=== PATIENT | female | born 1990 | race Caucasian/White ===

== ENCOUNTER 2019-08-08 08:03 | Outpatient (CLI) | payer OTHER ==
[~2019-08-08 08:03] MED LIST: IBUP-1222 PO; LISI40TA PO
[2019-08-08] MEDS ORDERED: SERT50TA28 PO (08:49)
[2019-08-08] MEDS ORDERED: OMEP20TA62 PO (08:49)
[2019-08-08] MEDS ORDERED: ELAG150T PO (08:49)
[2019-08-08] MEDS ORDERED: TRAZ50TA66 PO (08:49)
[2019-08-08] MEDS ORDERED: PROP10TA16 PO (08:49)
[2019-08-08] MEDS ORDERED: BUPR150T73 PO (08:49)
[2019-08-08] MEDS ORDERED: HYDR50TA99 PO (08:49)
== END 2019-08-08 23:59 | disposition home or self-care (01) ==
LOC: STAR 08:03
PROVIDERS: ATTEND Surgery
DX: Z11.59 Encounter for screening for other viral diseases (principal)
CPT/HCPCS: U0001-CS

== ENCOUNTER 2019-08-12 10:31 | Day surgery (SDC) | payer OTHER ==
[~2019-08-12] VITALS: Ht 165.1 cm; Wt 93.0 kg
[~2019-08-12 10:31] MED LIST changes: +BUPIVACAINE/PF-EPI 0.5% 1:200K ONE; +BUPR150T73 PO; +ELAG150T PO; +HYDR50TA99 PO; +OMEP20TA62 PO; +PROP10TA16 PO; +SERT50TA28 PO; +TRAZ50TA66 PO
[2019-08-12] MEDS ORDERED: CHLORHEXIDINE 15 ML UDC MM STA (10:57)
[2019-08-12] MEDS ORDERED: LACTATED RINGERS 1,000 ML IV SCH (10:57)
[2019-08-12] MEDS ORDERED: LIDOCAINE-MPF 1%, 2ML INFIL STA (10:57)
[2019-08-12 10:59] VITALS: BP 110/73
[2019-08-12] MEDS ORDERED: ACETAMINOPHEN 500 MG TABLET PO STA (10:59)
[2019-08-12] MEDS ORDERED: ONDANSETRON ODT 8 MG PO STA (10:59)
[2019-08-12] MEDS ORDERED: DIAZEPAM 5 MG TABLET PO STA (11:16)
[2019-08-12 11:26] LABS: HCG UR SG 1.015 (1.003-1.030)
[2019-08-12] MEDS ORDERED: MIDAZOLAM 1 MG/ML, 2ML ONE ×2 (12:18→13:46)
[2019-08-12] MEDS ORDERED: FENTANYL PF 100 MCG/2ML ONE ×2 (12:18→13:46)
[2019-08-12] MEDS ORDERED: LORazepam 2 MG/ML, 1ML IVPush PRN (13:00)
[2019-08-12] MEDS ORDERED: PROMETHAZINE 25 MG/ML, 1ML IVPush PRN (13:00)
[2019-08-12] MEDS ORDERED: KETOROLAC 30 MG/1 ML IVPush PRN (13:00)
[2019-08-12] MEDS ORDERED: HYDROmorphone 1 MG/ML, 1ML INJ IVPush PRN (13:00)
[2019-08-12] MEDS ORDERED: MEPERIDINE/PF 25MG/0.5ML IVPush PRN (13:00)
[2019-08-12] MEDS ORDERED: ONDANSETRON 2MG/ML, 2ML IVPush PRN (13:00)
[2019-08-12] MEDS ORDERED: DEXAMETHASONE 4 MG/ML, 1ML ONE (13:04)
[2019-08-12] MEDS ORDERED: CEFAZOLIN 1,000 MG ONE (13:04)
[2019-08-12] MEDS ORDERED: ROCURONIUM 10MG/ML,5ML ONE (13:04)
[2019-08-12] MEDS ORDERED: PROPOFOL 10 MG/ML, 20ML ONE (13:04)
[2019-08-12] MEDS ORDERED: SUGAMMADEX 200 MG/2 ML IVPush ONE (13:04)
[2019-08-12] MEDS: FENTANYL PF 100 MCG/2ML IV PRN ×2 (13:51→14:07)
[2019-08-12] MEDS ORDERED: KETOROLAC 30 MG/1 ML ONE (14:18)
[2019-08-12] MEDS: OXYcodone 5 MG/5 ML ORAL.SOL UDC PO PRN ×2 (14:41→15:09)
[2019-08-12] MEDS ORDERED: OXYcodone 5 MG/5 ML ORAL.SOL UDC ONE (14:41)
== END 2019-08-12 16:35 | disposition home or self-care (01) ==
LOC: OR 10:31
PROVIDERS: ATTEND Surgery
DX: K82.8 Other specified diseases of gallbladder (principal); K21.9 Gastro-esophageal reflux disease without esophagitis; F32.9 Major depressive disorder, single episode, unspecified; F41.9 Anxiety disorder, unspecified; Z79.899 Other long term (current) drug therapy; Z87.891 Personal history of nicotine dependence; Z98.890 Other specified postprocedural states
CPT/HCPCS: 47562; 81025; 88304; C1760; J0690; J1100; J1885; J2250; J2704; J3010; J7120; Q0162

== ENCOUNTER 2019-10-25 16:50 | Emergency (ER) | payer OTHER ==
[~2019-10-25] VITALS: Ht 165.1 cm; Wt 98.3 kg
[~2019-10-25 16:50] MED LIST changes: -BUPIVACAINE/PF-EPI 0.5% 1:200K ONE
--- NOTE | 2019-10-25 18:26 | NUR ---
PT HAS CO ABDOMINAL PAIN. SUPPOSED TO GET HERNIA SURGERY, PCP WOULDNT PRESCRIBE FURTHER PAIN MEDS, WAS SENT TO ER. VSS. PT RESTING, WATCHING TV
[2019-10-25] MEDS ORDERED: SODIUM CHLORIDE FLUSH 10ML SYR IVF ONE (18:30)
--- NOTE | 2019-10-25 18:53 | NUR ---
REPORT TO MARYCRUZ
[2019-10-25 18:54] LABS: BASOPHILS # (AUTO) 0.04 x10^3/uL (0-0.1); BASOPHILS % (AUTO) 1 % (0-1); EOSINOPHILS # (AUTO) 0.04 x10^3/uL (0-0.4); EOSINOPHILS % (AUTO) 1 % (1-7); LYMPHOCYTES # (AUTO) 1.97 x10^3/uL (1-3.4); LYMPHOCYTES % (AUTO) 28 % (22-44); MD NO; MEAN CORPUSCULAR HEMOGLOBIN 30.8 pg (27.0-34.8); MEAN CORPUSCULAR HGB CONC 32.7 g/dL (32.4-35.8); MEAN CORPUSCULAR VOLUME 94.2 fL (80-100); MEAN PLATELET VOLUME 8.1 fL (7.4-10.4); MONOCYTES # (AUTO) 0.54 x10^3/uL (0.2-0.8); MONOCYTES % (AUTO) 8 % (2-9); NEUTROPHILS # (AUTO) 4.42 x10^3/uL (1.8-6.8); NEUTROPHILS % (AUTO) 63 % (42-75); PLATELET COUNT 306 x10^3/uL (130-400); RED BLOOD COUNT 4.07 x10^6/uL (3.82-5.3); RED CELL DISTRIBUTION WIDTH 12.6 % (9.6-15.2)
[2019-10-25 18:56] LABS: ALANINE AMINOTRANSFERASE 22 U/L (12-78); ALBUMIN 3.6 g/dL (3.4-5.0); ANION GAP 7 mmol/L (5-15); CALCIUM 8.1 mg/dL (8.5-10.1); CHLORIDE 110 mmol/L (98-107)
--- NOTE | 2019-10-25 18:57 | NUR ---
CT PENDING BETA.
--- NOTE | 2019-10-25 19:00 | NUR ---
REPORT FROM SISI OLMEDO ASSUMING CARE OF PT
[2019-10-25 19:02] LABS: ALKALINE PHOSPHATASE 69 U/L (45-117); BILIRUBIN,TOTAL 0.3 mg/dL (0.2-1.0); CREATININE 0.78 mg/dL (0.55-1.02); TOTAL PROTEIN 6.9 g/dL (6.4-8.2)
[2019-10-25 19:12] VITALS: BP 104/62
[2019-10-25] MEDS ORDERED: OMNIPAQUE 350 MG/ML, 100ML BOTTLE ONE (19:31)
== END 2019-10-25 20:38 | disposition home or self-care (01) ==
LOC: ED 20:30
DX: N83.292 Other ovarian cyst, left side (principal); N83.291 Other ovarian cyst, right side; R10.84 Generalized abdominal pain
CPT/HCPCS: 36415; 74177; 80053; 83605; 83690; 84703; 85025; 99285; Q9967

== ENCOUNTER → 2019-11-07 | Outpatient (CLI) | payer OTHER ==
[~2019-11-07] MED LIST changes: +ELAG200T PO; +MULT-658 PO; +vitamin C PO
== END | disposition home or self-care (01) ==
LOC: STAR 13:19
PROVIDERS: ATTEND Surgery
DX: Z01.812 Encounter for preprocedural laboratory examination (principal); Z20.828 Contact with and (suspected) exposure to other viral communicable diseases
CPT/HCPCS: 36415; 87635

== ENCOUNTER 2019-11-11 06:03 | Day surgery (SDC) | payer OTHER ==
[~2019-11-11] VITALS: Ht 165.1 cm; Wt 100.6 kg
[2019-11-11] MEDS ORDERED: LACTATED RINGERS 1,000 ML IV SCH (06:10)
[2019-11-11 06:24] VITALS: BP 105/71
[2019-11-11] MEDS ORDERED: CHLORHEXIDINE 15 ML UDC MM ONE (06:30)
[2019-11-11] MEDS ORDERED: LIDOCAINE-MPF 1%, 2ML INFIL STA (06:39)
[2019-11-11] MEDS ORDERED: LIDOCAINE-MPF 1%, 2ML ONE (06:39)
[2019-11-11 06:41] LABS: HCG UR SG 1.012 (1.003-1.030)
[2019-11-11] MEDS ORDERED: BUPIVACAINE/EPI 0.5% 1:200K ONE (06:54)
[2019-11-11] MEDS ORDERED: MIDAZOLAM 1 MG/ML, 2ML ONE (07:12)
[2019-11-11] MEDS ORDERED: FENTANYL PF 250 MCG/5ML ONE (07:12)
[2019-11-11] MEDS ORDERED: KETOROLAC 30 MG/1 ML ONE (07:18)
[2019-11-11] MEDS ORDERED: FENTANYL PF 100 MCG/2ML IV PRN (07:30)
[2019-11-11] MEDS ORDERED: LABETALOL 5MG/ML, 20ML IV PRN (07:30)
[2019-11-11] MEDS ORDERED: HALOPERIDOL 5 MG/ML IV PRN (07:30)
[2019-11-11] MEDS ORDERED: PROMETHAZINE 25 MG/ML, 1ML IVPush PRN (07:30)
[2019-11-11] MEDS ORDERED: DIPHENHYDRAMINE 50 MG/ML, 1ML IVPush PRN (07:30)
[2019-11-11] MEDS ORDERED: MEPERIDINE/PF 25MG/0.5ML IVPush PRN (07:30)
[2019-11-11] MEDS ORDERED: HYDROmorphone 1 MG/ML, 1ML INJ IVPush PRN (07:30)
[2019-11-11] MEDS ORDERED: hydrALAzine 20 MG/ML, 1ML IV PRN (07:30)
[2019-11-11] MEDS ORDERED: HYDROcodone/APAP 7.5-325MG/15ML UDC PO PRN (07:30)
[2019-11-11] MEDS ORDERED: DEXAMETHASONE 4 MG/ML, 1ML ONE (07:44)
[2019-11-11] MEDS ORDERED: PROPOFOL 10 MG/ML, 20ML ONE (07:44)
[2019-11-11] MEDS ORDERED: NEOSTIGMINE 1 MG/ML, 10ML ONE (07:44)
[2019-11-11] MEDS ORDERED: ROCURONIUM 10MG/ML,5ML ONE (07:44)
[2019-11-11] MEDS ORDERED: GLYCOPYRROLATE 0.2MG/1ML, 5ML ONE (07:44)
[2019-11-11] MEDS ORDERED: ONDANSETRON 2MG/ML, 2ML ONE (07:44)
[2019-11-11] MEDS ORDERED: CEFAZOLIN 1,000 MG ONE (07:44)
[2019-11-11] MEDS ORDERED: SUCCINYLCHOLINE 20 MG/ML, 10ML ONE (07:44)
== END 2019-11-11 09:55 | disposition home or self-care (01) ==
LOC: OUT 06:03
PROVIDERS: ATTEND Surgery
DX: K42.0 Umbilical hernia with obstruction, without gangrene (principal); F41.9 Anxiety disorder, unspecified; F32.9 Major depressive disorder, single episode, unspecified; K21.9 Gastro-esophageal reflux disease without esophagitis; R53.83 Other fatigue; Z79.899 Other long term (current) drug therapy; Z90.49 Acquired absence of other specified parts of digestive tract; Z87.891 Personal history of nicotine dependence; Z98.890 Other specified postprocedural states; Z88.8 Allergy status to other drugs, medicaments and biological substances; Z91.018 Allergy to other foods
CPT/HCPCS: 49587; 81025; C1781; J0330; J0690; J1100; J1885; J2250; J2405; J2704; J2710; J3010; J7120

== ENCOUNTER 2020-09-22 17:03 | Emergency (ER) | payer SELFPAY ==
[~2020-09-22] VITALS: Ht 165.1 cm; Wt 110.0 kg
[~2020-09-22 17:03] MED LIST changes: -LISI40TA PO; +LISI40TA9 PO
--- NOTE | 2020-09-22 17:19 | NUR ---
BIBA FROM [facility] AFTER HAVING SEVERE PAIN BLADDER AND L. FLANK FROM UTI. PT POSTIONED TO COMFORT IN BED. ATTACHED TO MONITOR. VSS. NADN. DR. BRODY TO BEDSIDE FOR EVALUATION.
[2020-09-22] MEDS ORDERED: SODIUM CHLORIDE FLUSH 10ML SYR IVF ONE (17:30)
[2020-09-22] MEDS ORDERED: MORPHINE SULFATE 4 MG/ML, 1ML IVPush PRN (17:30)
[2020-09-22] MEDS ORDERED: ONDANSETRON 2MG/ML, 2ML IVPush ONE (17:30)
[2020-09-22] MEDS ORDERED: SODIUM CHLORIDE 0.9% 1,000ML IVBOLUS ONE (17:30)
[2020-09-22] MEDS ORDERED: KETOROLAC 30 MG/1 ML IVPush ONE (17:30)
[2020-09-22] MEDS ORDERED: MORPHINE SULFATE 4 MG/ML, 1ML ONE (17:31)
[2020-09-22] MEDS ORDERED: ONDANSETRON 2MG/ML, 2ML ONE (17:31)
[2020-09-22] MEDS ORDERED: KETOROLAC 30 MG/1 ML ONE (17:31)
[2020-09-22 17:38] LABS: BASOPHILS % (AUTO) 0 % (0-1); EOSINOPHILS % (AUTO) 1 % (1-7); LYMPHOCYTES % (AUTO) 12 % (22-44); MEAN CORPUSCULAR HEMOGLOBIN 31.2 pg (27.0-34.8); MEAN CORPUSCULAR HGB CONC 33.6 g/dL (32.4-35.8); MEAN PLATELET VOLUME 8.2 fL (7.4-10.4); MONOCYTES % (AUTO) 10 % (2-9); NEUTROPHILS % (AUTO) 77 % (42-75); PLATELET COUNT 291 x10^3/uL (130-400); RED BLOOD COUNT 4.23 x10^6/uL (3.82-5.3); RED CELL DISTRIBUTION WIDTH 12.8 % (9.6-15.2)
--- NOTE | 2020-09-22 17:40 | NUR ---
PT MEDICATED PER EMAR
[2020-09-22 17:41] LABS: MICROSCOPIC INDICATED
[2020-09-22 17:47] LABS: ALANINE AMINOTRANSFERASE 31 U/L (12-78); ALBUMIN 3.8 g/dL (3.4-5.0); ANION GAP 5 mmol/L (5-15); CALCIUM 8.8 mg/dL (8.5-10.1); CHLORIDE 108 mmol/L (98-107); CREATININE 0.62 mg/dL (0.55-1.02)
[2020-09-22 17:49] LABS: ALKALINE PHOSPHATASE 84 U/L (45-117); BILIRUBIN,TOTAL 0.5 mg/dL (0.2-1.0)
[2020-09-22] MEDS ORDERED: CEFTRIAXONE 1,000 MG in DEXTROSE 5% 50 ML IVPB ONE (18:00)
--- NOTE | 2020-09-22 18:25 | NUR ---
IV ANTIBIOTIC STARTED PER EMAR. PT TO D/C AFTER. VSS. NADN.
--- NOTE | 2020-09-22 18:44 | NUR ---
Mile riddle in ED - 09/22/20 at 1852 by SYLVESTER BEDSIDE REPORT FROM TARIK OLMEDO, PT CARE TRANSFERRED AT THIS TIME.
--- NOTE | 2020-09-22 18:52 | NUR ---
PREVIOUS NOTE ON INCORRECT PT.
[2020-09-22 18:53] VITALS: BP 100/67
--- NOTE | 2020-09-22 18:55 | NUR ---
Patient given discharge instructions and they have confirmed that they understand the instructions. Patient ambulatory with steady gait. NAD, all questions answered appropriately, denies additional needs at this time. No personal belongings left in room after discharge.
== END 2020-09-22 18:56 | disposition home or self-care (01) ==
LOC: ED 18:30
DX: N10 Acute pyelonephritis (principal); Z90.49 Acquired absence of other specified parts of digestive tract
CPT/HCPCS: 36415; 80053; 81001; 85025; 87077; 87086; 96365; 96375; 99284; J0696; J1885; J2270; J2405; J7030; 87186

== ENCOUNTER 2020-11-04 11:45 | Emergency (ER) | payer MEDICAID ==
[~2020-11-04] VITALS: Ht 165.1 cm; Wt 109.7 kg
--- NOTE | 2020-11-04 14:58 | NUR ---
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
--- NOTE | 2020-11-04 15:03 | NUR ---
EXPLAINED CURRENT ER POLICY TO FAMILY MEMBER DUE TO PATIENT HAVING COVID SYMPTOMS. FAMILY MEMBER ACKOWLEDGED AND WILL LEAVE ER. FAMILY MEMBER ACCEPTED EXPLANATION. DANY OLIVIA PRESENT DURING EXPLANATION WELL
[2020-11-04 15:25] VITALS: BP 112/66
== END 2020-11-04 16:11 | disposition home or self-care (01) ==
LOC: ED 16:05
DX: J20.9 Acute bronchitis, unspecified (principal); J01.10 Acute frontal sinusitis, unspecified; J01.00 Acute maxillary sinusitis, unspecified; R07.9 Chest pain, unspecified; J45.909 Unspecified asthma, uncomplicated; Z90.49 Acquired absence of other specified parts of digestive tract; Z90.710 Acquired absence of both cervix and uterus; F17.200 Nicotine dependence, unspecified, uncomplicated
CPT/HCPCS: 71045; 99283